=== PATIENT | male | born 1945 | race Caucasian/White ===

== ENCOUNTER → 2021-05-07 | Outpatient (CLI) | payer MEDICARE ==
[~2021-05-07] MED LIST: ALIGN4 MG PO; ALLEGRA-D 24 H1 EACH PO; ARMOUR THYROID60 MG PO; CALCIUM CITRAT1 EA10 PO; CIALIS5 MG PO; CRESTOR10 MG PO; EXCEDRIN EXTRA1 EAC1 PO; FLAXSEED OIL1000 MG PO; FLOMAX0.4 MG PO; GABAPENTIN400 MG PO; GADOBENATE DIMEGLUMINE 1 ML IV ONE; HYDROXYZINE PAM25 MG PO; LASIX20 MG PO; METOLAZONE10 MG PO; MUCINEX DM ER1 EACH PO; MYCOPHENOLATE250 MG PO; NASONEX17 GM; POTASSIUM CHLO10 ME1 PO; PREDNISONE10 MG PO; RESTASIS1 EACH OP; SODIUM CHLORIDE 0.9% 50ML 50 ML ONE; SYMBICORT 16010.2 GM INH; SYNTHROID50 MCG PO; VASCEPA1 GM PO; XOLAIR150 MG IM; ZETIA10 MG PO; [UNRECOGNIZED DRUG - OTHER] PO
== END ==
LOC: MRI 07:39
PROVIDERS: ATTEND Internal Medicine Gastroenterology
DX: K85.90 Acute pancreatitis without necrosis or infection, unspecified (principal)
CPT/HCPCS: 74183; A9577